=== PATIENT | female | born 1990 | race Two or more races ===

== ENCOUNTER 2019-07-21 19:11 | Emergency (ER) | payer MEDICAID, OTHER ==
[~2019-07-21] VITALS: Ht 165.1 cm; Wt 67.8 kg
[2019-07-21 19:28] VITALS: BP 142/79
== END 2019-07-21 20:58 | disposition left against medical advice (07) ==
LOC: ER 19:27
DX: H92.01 Otalgia, right ear (principal); Z53.21 Procedure and treatment not carried out due to patient leaving prior to being seen by health care provider

== ENCOUNTER → 2021-02-23 | Emergency (ER) | payer MEDICAID | END | disposition left against medical advice (07) | LOC: ER 02:50 | DX: Z77.098 Contact with and (suspected) exposure to other hazardous, chiefly nonmedicinal, chemicals (principal); Z53.21 Procedure and treatment not carried out due to patient leaving prior to being seen by health care provider ==

== ENCOUNTER 2022-02-02 23:02 | Emergency (ER) | payer MEDICAID ==
[~2022-02-02] VITALS: Ht 162.6 cm; Wt 78.5 kg
[2022-02-02 23:53] LABS: Basophils # (auto) 0 10 ^3/uL (0-0.2); Monocytes # (auto) 0.3 10 ^3/uL (0-1.3); Nucleated Red Blood Cells % 0.1 %
[2022-02-02 23:55] LABS: Basophils % (auto) 0.6 % (0.0-2.0); Eosinophils # (auto) 0.1 10 ^3/uL (0-0.8); Eosinophils % (auto) 1.8 % (0.0-7.0); Hematocrit 31.1 % (36.0-46.0); Lymphocytes # (auto) 2.1 10 ^3/uL (0.4-5.4); Mean Corpuscular Hemoglobin 23.4 pg (28.0-32.0); Mean Corpuscular Hgb Conc. 32.2 g/dL (32.0-36.0); Mean Corpuscular Volume 72.7 fL (80.0-100.0); Monocytes % (auto) 4.5 % (0.0-12.0); Neutrophils # (auto) 4.3 10 ^3/uL (1.6-8.6); Neutrophils % (auto) 62.1 % (37.0-80.0); Red Blood Cells 4.28 10^6/uL (4.0-5.20); White Blood Cell 6.9 10^3/uL (4.4-10.8)
[2022-02-02 23:57] LABS: Red Cell Distribution Width 21.1 % (11.8-14.3)
[2022-02-02 23:59] VITALS: BP 134/83
[2022-02-03 00:13] LABS: Albumin 3.7 g/dL (3.4-5.0); Calcium 8.9 mg/dL (8.5-10.1); Potassium 3.8 mmol/L (3.5-5.1)
[2022-02-03 00:15] LABS: BUN/Creatinine Ratio 17.2
[2022-02-03 00:17] LABS: Bilirubin, Total 0.2 mg/dL (0.2-1.0)
[2022-02-03] MEDS ORDERED: PANT40TA2 PO (02:37)
== END 2022-02-03 02:44 | disposition home or self-care (01) ==
LOC: ER 23:02
DX: K29.70 Gastritis, unspecified, without bleeding (principal)
CPT/HCPCS: 36415; 80053; 83690; 84702; 85025

== ENCOUNTER 2023-03-04 20:19 | Emergency (ER) | payer MEDICAID ==
[~2023-03-04] VITALS: Ht 165.1 cm; Wt 72.8 kg
[~2023-03-04 20:19] MED LIST: PANT40TA2 PO
[2023-03-04 21:06] VITALS: BP 154/65
[2023-03-04] MEDS ORDERED: METR1GEL TOP ×2 (23:33)
[2023-03-05] MEDS ORDERED: TRIA0.02 TOP (05:00)
== END 2023-03-04 23:45 | disposition home or self-care (01) ==
LOC: ER 20:19
DX: L24.9 Irritant contact dermatitis, unspecified cause (principal)